=== PATIENT | female | born 1990 | race Caucasian/White ===

== ENCOUNTER 2017-04-03 19:09 | Emergency (ER) | payer MEDICAID, SELFPAY ==
[2017-04-03 19:10] VITALS: BP 154/94; PULSE 76; RESP 16; TEMP 36.2; O2SAT 100; BMI 32.3
--- NOTE | 2017-04-03 19:36 | ED.DCSUM_ITS ---
- ER Visit Summary Date of Service: 04/03/17 Chief Complaint: Concern for History of Present Illness: The patient is a 26 F presenting with concern for . Patient states that she took 2 home tests today, one was positive and one was negative. She states she has been told by doctors in the past that she is unable to get . She has a history of irregular periods. She states her last period was in November. She complains of mild nausea with no vomiting. She states last night she noted discharge from bilateral breasts. Denies other complaints. Physical Examination: Vitals are stable. Patient is afebrile. Alert no acute distress. HEENT exam is unremarkable. Neck is supple. Lungs are clear and equal bilaterally. Heart is regular rate and rhythm. Abdomen is soft nontender nondistended. Extremities are unremarkable. Skin is warm and dry. No focal neurologic deficit. Remainder of exam is unremarkable. Emergency Department Course and Treatment: Serum HCG is positive. [place] quant [address]. Ultrasound was obtained and shows live intrauterine with estimated gestational age by ultrasound 29 weeks and 6 days with estimated date of confinement of 06/13/2017. Patient's initial blood pressure was 154/94. She states she has a history of hypertension. She has been noncompliant and has not had medications over the past several years. Repeat blood pressure is 144/ 84. She states she is very anxious finding out that she is almost 30 weeks . Discuss[address] with Dr. Cinthia Loredo and patient will be seen in the office for close outpatient follow-up. Advised return ED if worsening complaints. Disposition: Discharge home Impression: 3rd trimester This note was generated with [employer] dictation software. It may contain incorrect words, spelling, and punctuation that were not noted in review of the chart prior to signing ED Disposition - Plan for ED Patient: Chief Complaint: Instructions: ED Care Referrals: Veronica Saldana MD [STAFF PHYSICIAN] - Care Physician,No Primary [Primary Care Provider] -
[2017-04-03 20:49] LABS: Pregnancy, Serum, hCG Quali. POSITIVE Negative (0-9 Nonpreg)
--- NOTE | 2017-04-03 20:50 | US_ITS ---
STUDY: SECOND AND THIRD TRIMESTER OBSTETRICAL ULTRASOUND - LIMITED REASON FOR EXAM: Female, 26 years old. Viability. Discovered in ER. LMP: 12/24/2017 PRIOR ULTRASOUND: None. TECHNIQUE: Transabdominal ultrasound evaluation was performed. FINDINGS: There is a single intrauterine fetus. The fetus is in a cephalic presentation. There is demonstrated cardiac activity with a heart rate of 165 bpm. There is a normal amniotic fluid volume. The largest amniotic fluid pocket measures 5.8 cm.. The placenta is anterior in location and is not low lying. There are Grade 1 placental changes. The cervix measures 3.1 cm in length. BIOMETRY: BPD: 7.0 cm: 28 weeks, 2 days HC: 27.8 cm: 30 weeks, 3 days AC: 26.6 cm: 30 weeks, 6 days FL: 5.6 cm: 29 weeks, 5 days Age by LMP: 14 weeks, 2 days. DANN by LMP: 09/30/2017. age by current US: 29 weeks, 6 days. DANN by current US: 06/13/2017. Estimated weight: 1520 grams, +/- 222 grams, 98 percentile. Gender: Indeterminant US/OB Limited With Biometrics IMPRESSION: Live intrauterine with estimated gestational age by ultrasound 29 weeks and 6 days with estimated date of confinement of 06/13/2017. This is not concordant with age by LMP likely secondary to patient unsure of exact date, clinically correlate. Electronically Signed: Diony Fitzgerald DO at 22:02 EST , Service support ,
--- NOTE | 2017-04-03 20:51 | ED.RN ---
DR MENSAH AWARE TEST IS POSITIVE.
[2017-04-03 21:48] LABS: hCG Titer Quant., Serum 13418 mIU/mL (<9 non-preg)
--- NOTE | 2017-04-03 22:10 | NURSING ---
CALLED DR. LEUNG
--- NOTE | 2017-04-03 22:14 | ED.DEP ---
ED Disposition - Plan for ED Patient: Chief Complaint: Instructions: ED Care Referrals: Care Physician,No Primary [Primary Care Provider] - Veronica Saldana MD [STAFF PHYSICIAN] -
[2017-04-03 22:21] VITALS: BP 140/92; PULSE 74; RESP 18; O2SAT 100
--- NOTE | 2017-04-03 22:23 | NURSING ---
DR. LEUNG CALLED BACK
[2017-04-03 22:34] VITALS: BP 140/92; PULSE 74; RESP 18; O2SAT 100
== END 2017-04-03 22:35 | disposition home or self-care (01) ==
PROVIDERS: Emergency Provider Emergency Medicine
DX: O10.913 Unspecified pre-existing hypertension complicating pregnancy, third trimester (principal); O09.33 Supervision of pregnancy with insufficient antenatal care, third trimester; O24.313 Unspecified pre-existing diabetes mellitus in pregnancy, third trimester; E11.9 Type 2 diabetes mellitus without complications; O99.333 Smoking (tobacco) complicating pregnancy, third trimester; Z91.14 Patient's other noncompliance with medication regimen; Z3A.29 29 weeks gestation of pregnancy
CPT/HCPCS: 76816; 84702; 84703; 99282

== ENCOUNTER → 2017-04-11 10:02 | Outpatient (CLI) | payer MEDICAID, SELFPAY ==
[2017-04-11 11:21] LABS: Color, Urine Yellow (Yellow); Glucose, Dipstick Normal (Normal); Ketone-Dipstick Negative (Negative); Leukocyte Esterase-Dipstick 25 /ul (Negative); Nitrite-Dipstick Negative (Negative); Occult Blood-Urine Negative /ul (Negative); Protein-Dipstick Negative (Negative); Specific Gravity, Urine 1.005 (1.002-1.030); Urine Bilirubin Dipstick Negative (Negative); Urine Clarity Clear (Clear); Urine Urobilinogen Normal (Normal)
[2017-04-11 11:26] LABS: Absolute Lymphocyte Count 1.61 X10^3/ul (0.83-4.51); Absolute Neutrophil Count 7.7 X10^3/uL (2.0-7.7); Basophil# 0.02 X10^3/uL; Basophil% 0.2 % (0-1); Eosinophil# 0.09 X10^3/uL; Eosinophils% 0.9 % (0-5); Hematocrit 34.6 % (37-47); Lymphocyte # 1.61 X10^3/ul (4.0); Lymphocyte % 15.8 % (19-41); Mean Corp Hgb Conc 34.7 g/gl (32-36); Mean Corpuscular Hgb 30.6 pg (27.0-32.0); Mean Corpuscular Volume 88.3 fL (81-99); Mean Platelet Vol. 12.1 fl (6.2-12.0); Monocyte# 0.72 X10^3/uL; Monocyte% 7.1 % (0-10); Neutrophil # 7.71 X10^3/uL (2.7-7.7); Neutrophil % 75.8 % (47-70); POSITIVE COUNT NO; POSITIVE DIFFERENTIAL NO; POSITIVE MORPHOLOGY NO; Platelet Count 148 K/mm3 (150-450); RBC Distribution Width CV 12.9 % (11.6-14.6); RBC Distribution Width SD 40.1 fl (35.1-43.9); Red Blood Count 3.92 M/mm3 (4.2-5.4); White Blood Count 10.2 K/mm3 (4.4-11.0)
[2017-04-11 11:45] LABS: Thyroid Stim Hormone (TSH) 1.47 uIU/mL (0.358-3.74)
[2017-04-11 12:06] LABS: Amphetamine Urine VISTA NEGATIVE (<1000 ng/mL); Barbiturate Urine VISTA NEGATIVE (< 200 ng/mL); Benzodiazepine Urine VISTA NEGATIVE (< 200 ng/mL); Cocaine Urine VISTA NEGATIVE (< 300 ng/mL); Ecstacy Urine VISTA NEGATIVE (< 500 ng/mL); Methadone Urine VISTA NEGATIVE (< 300 ng/mL); PCP Urine VISTA NEGATIVE (< 25 ng/mL); THC Urine VISTA NEGATIVE (< 50 ng/mL); Vista UDS pH Range 7
[2017-04-11 12:30] LABS: Hemoglobin A1c 4.9 % (4.2-6.3)
[2017-04-11 12:46] LABS: HIV - WCH Non-Reactive (Nonreactive); Rubella IgG 36.4 IU/mL
[2017-04-11 14:02] LABS: Chlamydia Trachomatis by PCR Negative (Negative); Neisserai gonorrhoeae by PCR Negative (Negative); Probe Check PASS; Sample Adequacy Control PASS; Specimen Processing Control PASS
[2017-04-12 15:57] LABS: HEPATITIS B SURFACE AG Negative (Negative); Hep C Antibodies <0.1 s/co ratio (0.0-0.9)
[2017-04-13 01:51] LABS: Prenatal RPR NONREACTIVE (NONREACTIVE)
[2017-04-16 15:49] LABS: HPV Reflexed? NOT INDICATED
== END ==
PROVIDERS: Visit Provider Obstetrics & Gynecology
DX: Z12.4 Encounter for screening for malignant neoplasm of cervix (principal); Z11.3 Encounter for screening for infections with a predominantly sexual mode of transmission; Z32.01 Encounter for pregnancy test, result positive
CPT/HCPCS: 36415; 80307; 81002; 83036; 84443; 85025; 86703; 86762; 86803; 87340; 87491; 87591; 88175; G0145

== ENCOUNTER → 2017-04-22 10:29 | Outpatient (CLI) | payer MEDICAID, SELFPAY ==
[2017-04-22 11:13] LABS: Glucose Challenge Gest 1H 50g 143 mg/dL (70-140)
== END ==
PROVIDERS: Visit Provider Obstetrics & Gynecology
DX: Z34.83 Encounter for supervision of other normal pregnancy, third trimester (principal); Z3A.00 Weeks of gestation of pregnancy not specified
CPT/HCPCS: 36415; 82950

== ENCOUNTER → 2017-05-05 08:50 | Outpatient (CLI) | payer MEDICAID, SELFPAY ==
[2017-05-05 09:42] LABS: Glucose GTT-Gestation. Fasting 75 mg/dL (<105)
[2017-05-05 11:00] LABS: Glucose GTT-Gestational 1 Hr 160 mg/dL (<190)
[2017-05-05 11:40] LABS: Glucose GTT-Gestational 2 Hr 154 mg/dL (<165)
[2017-05-05 13:00] LABS: Glucose GTT-Gestational 3 Hr 79 L (<145)
== END ==
PROVIDERS: Visit Provider Obstetrics & Gynecology
DX: O99.810 Abnormal glucose complicating pregnancy (principal); Z3A.00 Weeks of gestation of pregnancy not specified
CPT/HCPCS: 36415; 82951; 82952

== ENCOUNTER → 2017-05-20 11:05 | Outpatient (CLI) | payer MEDICAID, SELFPAY ==
[2017-05-20 14:48] LABS: Group B Strep DNA By PCR POSITIVE (Negative); Probe Check PASS
== END ==
PROVIDERS: Visit Provider Obstetrics & Gynecology
DX: Z36.85 Encounter for antenatal screening for Streptococcus B (principal)
CPT/HCPCS: 87653

== ENCOUNTER 2017-06-16 19:15 | Inpatient (IN) | payer MEDICAID, SELFPAY ==
[2017-06-16 18:45] VITALS: BMI 36.4
[2017-06-16 19:19] LABS: ROM Internal Control Test YES-OK TO RESULT pt. (Internal QC)
[2017-06-16 19:20] LABS: ROM Patient Test POSITIVE (Negative)
[2017-06-16] MEDS: Lactated Ringers 1,000 ML 50 ML IV ×3 (19:35→23:14)
[2017-06-16 19:51] LABS: Hematocrit 35.4 % (37-47); Hemoglobin 11.8 g/dl (12.0-15.0); Mean Corp Hgb Conc 33.3 g/gl (32-36); Mean Corpuscular Hgb 29.2 pg (27.0-32.0); Mean Corpuscular Volume 87.6 fL (81-99); Mean Platelet Vol. 12.7 fl (6.2-12.0); Platelet Count 118 K/mm3 (150-450); RBC Distribution Width CV 13.3 % (11.6-14.6); RBC Distribution Width SD 42.6 fl (35.1-43.9); Red Blood Count 4.04 M/mm3 (4.2-5.4); White Blood Count 13.5 K/mm3 (4.4-11.0)
[2017-06-16 20:06] LABS: Scan Indicated on CBC? Y/N NO
[2017-06-16] MEDS: fentaNYL-bupivacaine (epidural) 100 ML BAG EPIDURAL (22:00)
[2017-06-17] MEDS: fentaNYL-bupivacaine (epidural) 100 ML BAG EPIDURAL ×2 (02:41→07:38)
[2017-06-17] MEDS: 0.9% Saline Lock 10 ML Syringe IV ×2 (04:28→14:12)
[2017-06-17] MEDS: Lactated Ringers 1,000 ML 50 ML IV (06:42)
--- NOTE | 2017-06-17 08:27 | PCM.PN.OB ---
Subjective: Comfortable with epidural in place. Objective: Afeb VSS. FHR tracing Cat 1. - Physical Exam General: Alert, Oriented x3, Cooperative Abdomen: Non-Distended, Gravid, Appropriate for Gestational Age Extremities: No edema, No Calf Tenderness Skin: No rashes Neurological: Neuro grossly intact Psych/Mental Status: Normal Affect Comment: CE Rim 100% Weight: 212 lb 8.41 oz Body Mass Index (BMI) 36.4 Intake and Output for Last 24 Hours 06/15/17 06/16/17 06/17/17 23:59 23:59 23:59 Intake Total 3420 / 3420 Output Total 1675 / 1675 Balance 1745 / 1745 Laboratory Tests Past 24 Hrs 06/16/17 06/16/17 06/16/17 18:45 19:35 19:35 WBC 13.5 H RBC 4.04 L Hgb 11.8 L Hct 35.4 L MCV 87.6 MCH 29.2 MCHC 33.3 RDW 13.3 RDW Differential 42.6 Plt Count 118 L MPV 12.7 H Vag Amniotic Fld Detect POSITIVE H Urine Opiates Screen Urine Methadone Screen Ur Barbiturates Screen Ur Phencyclidine Scrn Ur Amphetamines Screen U Methamphetamin-MDMA U Benzodiazepines Scrn Urine Cocaine Screen U Cannabinoids Screen Ur Drug Screen Comment Blood Type O POSITIVE Antibody Screen NEGATIVE 06/17/17 05:40 WBC RBC Hgb Hct MCV MCH MCHC RDW RDW Differential Plt Count MPV Vag Amniotic Fld Detect Urine Opiates Screen Pending Urine Methadone Screen Pending Ur Barbiturates Screen Pending Ur Phencyclidine Scrn Pending Ur Amphetamines Screen Pending U Methamphetamin-MDMA Pending U Benzodiazepines Scrn Pending Urine Cocaine Screen Pending U Cannabinoids Screen Pending Ur Drug Screen Comment Blood Type Antibody Screen Medical Necessity - Tobacco Use Smoking Status: Current every day smoker Assessment/Plan Progressing well in labor. Anticipate pushing soon.
[2017-06-17] MEDS: Oxytocin 30 units/NS 500 ml 30 UNITS/500 ML IV.SOLN 334 UNITS IV (10:37)
--- NOTE | 2017-06-17 10:47 | PCM.OB.VAG ---
Vaginal Delivery Maternal Presentation: Active Labor, Spontaneous Rupture of Membranes Presents at 40w4d ega with SROM at 1100 on 06/16. Progressed overnight to FD then pushed for about 2 hours to deliver a live female . Apgars 8/9. There was a tight nuchal cord. After delivery delayed cord clamping was employed. The was an active cry within one minute of delivery. Cord bloods were collected. The placenta delivered spontaneously intact with a centrally located 3VC. The uterus contracted well. Inspection revealed an intact cervix, upper vagina, and perineum. Amniotic Membrane Rupture Type: Spontaneous at home Rupture of Membrane time: 1100 Amniotic Fluid Description: Clear Final DANN: 06/13/17 Final DANN Source: US <20 weeks Gestational age: 40 Weeks and 4 Days Date of Procedure: 06/17/17 Pre-Operative Diagnosis: labor Post-Operative Diagnosis: same Surgery/ Procedure Performed: Spontaneous Vaginal Delivery Anesthesiologist: Toan Schreiber Type of Anesthesia: Epidural Description of Procedure: see above Presentation: Vertex Placental Delivery Description: Spontaneous Placenta Disposition: [facility] Percentage of Placenta Abruption: 0 Cord Vessel Description: 3 Vessels Nuchal Cord Compression: With compression Cord Entanglement: Around neck x 1, tight Drain: Reyes to straight drain Estimated Blood Loss: 300cc A gender: Female (1 minute): 8 (5 minute): 9 Episiotomy Description: None Laceration: None Medications given after delivery: IV Pitocin Complications: None
--- NOTE | 2017-06-17 10:52 | OP.PCM_ITS ---
Vaginal Delivery Maternal Presentation: Active Labor, Spontaneous Rupture of Membranes Presents at 40w4d ega with SROM at 1100 on 06/16. Progressed overnight to FD then pushed for about 2 hours to deliver a live female . Apgars 8/9. There was a tight nuchal cord. After delivery delayed cord clamping was employed. The was an active cry within one minute of delivery. Cord bloods were collected. The placenta delivered spontaneously intact with a centrally located 3VC. The uterus contracted well. Inspection revealed an intact cervix , upper vagina, and perineum. Amniotic Membrane Rupture Type: Spontaneous at home Rupture of Membrane time: 1100 Amniotic Fluid Description: Clear Final DANN: 06/13/17 Final DANN Source: US <20 weeks Gestational age: 40 Weeks and 4 Days Date of Procedure: 06/17/17 Pre-Operative Diagnosis: labor Post-Operative Diagnosis: same Surgery/ Procedure Performed: Spontaneous Vaginal Delivery Anesthesiologist: Toan Schreiber Type of Anesthesia: Epidural Description of Procedure: see above Presentation: Vertex Placental Delivery Description: Spontaneous Placenta Disposition: [facility] Percentage of Placenta Abruption: 0 Cord Vessel Description: 3 Vessels Nuchal Cord Compression: With compression Cord Entanglement: Around neck x 1, tight Drain: Reyes to straight drain Estimated Blood Loss: 300cc Infant A gender: Female (1 minute): 8 (5 minute): 9 Episiotomy Description: None Laceration: None Medications given after delivery: IV Pitocin Complications: None
[2017-06-17] MEDS: Oxytocin 30 units/NS 500 ml 30 UNITS/500 ML IV.SOLN 167 UNITS IV (11:12)
[2017-06-17 11:44] LABS: Amphetamine Urine VISTA NEGATIVE (<1000 ng/mL); Barbiturate Urine VISTA NEGATIVE (< 200 ng/mL); Benzodiazepine Urine VISTA NEGATIVE (< 200 ng/mL); Cocaine Urine VISTA NEGATIVE (< 300 ng/mL); Ecstacy Urine VISTA NEGATIVE (< 500 ng/mL); Methadone Urine VISTA NEGATIVE (< 300 ng/mL); PCP Urine VISTA NEGATIVE (< 25 ng/mL); THC Urine VISTA NEGATIVE (< 50 ng/mL); Vista UDS pH Range 6
[2017-06-17] MEDS: Acetaminophen 500 MG Tablet 1000 MG PO (14:11)
[2017-06-17 16:00] VITALS: BP 119/60; PULSE 68; RESP 16; TEMP 36.9
[2017-06-17 20:10] VITALS: BP 145/92; BP 149/94; PULSE 74; RESP 16; TEMP 36.7; O2SAT 98
[2017-06-17 23:39] VITALS: BP 147/78; PULSE 78; RESP 16; TEMP 36.6; O2SAT 97
[2017-06-18 04:50] VITALS: BP 133/76; PULSE 75; RESP 16; TEMP 36.7; O2SAT 97
[2017-06-18 04:56] LABS: Hematocrit 30.2 % (37-47); Hemoglobin 10.2 g/dl (12.0-15.0); Mean Corp Hgb Conc 33.8 g/gl (32-36); Mean Corpuscular Hgb 30.3 pg (27.0-32.0); Mean Corpuscular Volume 89.6 fL (81-99); Mean Platelet Vol. 12.5 fl (6.2-12.0); Platelet Count 95 K/mm3 (150-450); RBC Distribution Width CV 13.3 % (11.6-14.6); RBC Distribution Width SD 41.3 fl (35.1-43.9); Red Blood Count 3.37 M/mm3 (4.2-5.4); White Blood Count 11.2 K/mm3 (4.4-11.0)
[2017-06-18 04:58] LABS: Scan Indicated on CBC? Y/N NO
[2017-06-18] MEDS: Ibuprofen 600 MG Tablet PO ×3 (04:58→20:59)
--- NOTE | 2017-06-18 07:40 | PCM.PN.OB ---
Subjective: No specific complaints. Breast feeding. Bleeding light Objective: Afeb VSS Hgb stable - Physical Exam General: Alert, Oriented x3, Cooperative, No apparent distress Lungs: Clear to auscultation, Normal air movement Cardiovascular: Regular rate, Regular Rhythm Abdomen: Soft, Non Tender, Non-Distended, - - Fundus firm nontender Extremities: No edema Skin: No rashes Neurological: Neuro grossly intact Psych/Mental Status: Normal Affect Comment: Lochia appropriate PP day#1. Vital Signs Temp Pulse Resp BP Pulse Ox 98.0 F 75 16 133/76 H 97 06/18/17 04:50 06/18/17 04:50 06/18/17 04:50 06/18/17 04:50 06/18/17 04:50 Oxygen Delivery Method Room Air Weight: 212 lb 8.41 oz Body Mass Index (BMI) 36.4 Intake and Output for Last 24 Hours 06/16/17 06/17/17 06/18/17 23:59 23:59 23:59 Intake Total 3420 / 3420 Output Total 3825 / 3825 Balance -405 / -405 Laboratory Tests Past 24 Hrs 06/17/17 06/18/17 05:40 04:50 WBC 11.2 H RBC 3.37 L Hgb 10.2 L Hct 30.2 L MCV 89.6 MCH 30.3 MCHC 33.8 RDW 13.3 RDW Differential 41.3 Plt Count 95 L MPV 12.5 H Urine Opiates Screen NEGATIVE Urine Methadone Screen NEGATIVE Ur Barbiturates Screen NEGATIVE Ur Phencyclidine Scrn NEGATIVE Ur Amphetamines Screen NEGATIVE U Methamphetamin-MDMA NEGATIVE U Benzodiazepines Scrn NEGATIVE Urine Cocaine Screen NEGATIVE U Cannabinoids Screen NEGATIVE Medical Necessity - Tobacco Use Smoking Status: Current every day smoker Assessment/Plan Doing well on PP day#1. Continue routine care.
[2017-06-18 07:50] VITALS: BP 130/88; PULSE 67; RESP 20; TEMP 36.6; O2SAT 98
--- NOTE | 2017-06-18 11:28 | DCINST_ITS ---
Discharge Diet: No Restrictions Discharge Activity: Return to Normal Activity, No Restrictions, May Drive, May Shower Return to work on:: 08/18/17 May shower in (days): 0 May resume sexual activity in: 4-6 weeks Call your doctor if your incision/area has: Sudden Increased Bleeding, Increased Pain/ Swelling, Foul Smelling Discharge Call your doctor if you observe: Fever of 101 or Higher, Inability to urinate, Inability to have a bowel movement, Using more than one pad per hour, Shortness of breath, Chest pain, Calf discomfort, Uncontrolled pain Cleanse incision/area with: Soap & Water Additional Instructions: If you experience any of the following, contact your healthcare provider. * Bleeding that soaks a pad every hour for 2 hours * Fever 100.4 or higher * Unrelieved incision or abdominal pain * Swelling, redness, discharge or bleeding from your incision or episiotomy site * Your incision begins to separate * Problems urinating (including inability to urinate or burning while urinating) . * Visual changes * Severe headache * Flu-like symptoms * Pain or redness in one of both of your breasts * Pain, warmth, tenderness or swelling in your legs, especially the calf area * Frequent nausea and vomiting * Symptoms of depression or anxiety If you experience any of the following, call 911 or go to the nearest Emergency Room. * Chest pain * Problems breathing * Seizure activity * Partial or complete paralysis of a body part, slurred speech, weakness or drooping of the face, or a sudden inability to walk or hold your balance Allergies/Adverse Reactions: Allergies No Known Allergies Allergy (Verified 04/03/17 19:13) Medications to take at Discharge Vits [Prenatabs FA ] 1 tablet PO DAILY 06/16/17 Ibuprofen [Motrin] 800 mg PO TID PRN PRN #30 tab 06/18/17 The following prescriptions were given: Ibuprofen [Motrin] 800 mg PO TID PRN PRN #30 tab PRN Reason: Pain or cramping Please Follow Up With: Presley Ramirez MD When: 6 weeks Primary Care Physician: Care Physician,No Primary [Primary Care Provider] - Proposed Discharge Date: 06/19/17
[2017-06-18 13:25] VITALS: BP 102/57; PULSE 66; RESP 18; TEMP 36.7; O2SAT 98
[2017-06-18] MEDS: Prenatal Vits Tablet 1 TABLET PO (13:40)
--- NOTE | 2017-06-18 15:22 | CASEMGMT ---
Social Work: Referral Date: 06/18/17 Assessment Date:06/18/17 Reason for consult: later care. Informant: ENRIQUETA Carpenter Met with MOB and FOB in room. Introduced self and the role of the social staff worker. MOB and FOB have been in an 8 year relationship and currently live together. MOB and FOB are originally from [place] and will be moving back there as this is where most of their family and support system reside. MOB states that MOB's mother and step father are very supportive and will assist as needed. MOB is currently unemployed and will be primary caregiver of baby as FOB works. FOB is self employed and is flexible with work schedule. This baby is the first child for both MOB and FOB. EULALIA admits to late care as she did not realize until week 29 that she was . MOB states my periods have always been irregular so I did not realize I had skipped period plus I felt fine. MOB also states I was told I could not have children. MOB states once the was verified that care was followed up on. MOB verifies that all needed baby care items including crib and care seat have been obtained. EULALIA has already enrolled in [employer] and currently has food stamps through [employer]. MOB is on [employer] as will be the baby. MOB will be taking baby to a technical sales advisor in [place] and appointment will be made by MOB today per MOB. MOB denies any history of mental health concerns or substance abuse, although MOB is a daily smoker. FOB asked to step out of room as this SW assessed for safety concerns in the home. FOB was agreeable and pleasant in responding. After FOB stepped out of room this SW assessed MOB safety. MOB denied history or concern of abuse to MOB or baby. MOB and FOB appear to bonding well with baby. Information on safe sleeping and tips to soothe a crying baby given to MOB. Discussed signs of post depression and discussed the importance of recognizing different emotions. Information on depression provided to MOB. MOB encouraged to ask for SW if any needs or questions arise. No other needs identified at this time. See complete social assessment. PLAN: MOB to return home with baby and FOB at D/C today. ROSALIA Torres
[2017-06-18 20:48] VITALS: BP 136/80; PULSE 68; RESP 18; TEMP 36.6
[2017-06-19 01:20] VITALS: BP 139/83; PULSE 62; RESP 18; TEMP 36.4
--- NOTE | 2017-06-19 07:23 | PCM.PN.OB ---
Subjective: Doing well. No specific complaints. Bleeding light. Objective: Afeb VSS - Physical Exam General: Alert, Oriented x3, Cooperative, No apparent distress Lungs: Clear to auscultation, Normal air movement Cardiovascular: Regular rate, Regular Rhythm Abdomen: Soft, Non Tender, Non-Distended, - - Fundus nontender Extremities: No edema Skin: No rashes Neurological: Neuro grossly intact Psych/Mental Status: Normal Affect Comment: Lochia light Vital Signs Temp Pulse Resp BP Pulse Ox 97.5 F L 62 18 139/83 H 98 06/19/17 01:20 06/19/17 01:20 06/19/17 01:20 06/19/17 01:20 06/18/17 13:25 Oxygen Delivery Method Room Air Weight: 212 lb 8.41 oz Body Mass Index (BMI) 36.4 Intake and Output for Last 24 Hours 06/17/17 06/18/17 06/19/17 23:59 23:59 23:59 Intake Total 3420 / 3420 Output Total 3825 / 3825 Balance -405 / -405 Medical Necessity - Tobacco Use Smoking Status: Current every day smoker Assessment/Plan Doing well on PP day#2. Cleared for discharge home today. Home going instructions and warnings given.
--- NOTE | 2017-06-19 07:26 | PCM.DC.SUM ---
Discharge Date and Diagnosis Date of Admission: 06/16/17 Date of Discharge: 06/19/17 - Primary Discharge Diagnosis S/P Hospital Course and Treatment Consultations 06/16/17 19:18 Consult: Anesthesia Routine Comment: Reason For Exam: LABOR Operations: None Procedures: - - Epidural, Summary of Care Provided: The patient is a 27 year old F [admitted at term with SROM progressed over 22 hours to fully dilated then pushed for 2 hours to deliver a live female without complication. Post course unremarkable. Discharged home on PP day#2.] Discharge Diet: No Restrictions Discharge Activity: Return to Normal Activity, No Restrictions, May Drive, May Shower Return to work on:: 08/18/17 May shower in (days): 0 May resume sexual activity in: 4-6 weeks Call your doctor if your incision/area has: Sudden Increased Bleeding, Increased Pain/ Swelling, Foul Smelling Discharge Call your doctor if you observe: Fever of 101 or Higher, Inability to urinate, Inability to have a bowel movement, Using more than one pad per hour, Shortness of breath, Chest pain, Calf discomfort, Uncontrolled pain Cleanse incision/area with: Soap & Water Home Medications: Medications to take at Discharge Vits [Prenatabs FA ] 1 tablet PO DAILY 06/16/17 Ibuprofen [Motrin] 800 mg PO TID PRN PRN #30 tab 06/18/17 Following Prescrptions Were Given to Patient: Ibuprofen [Motrin] 800 mg PO TID PRN PRN #30 tab PRN Reason: Pain or cramping Primary Care Physician: Care Physician,No Primary [Primary Care Provider] - Please Follow Up With: Presley Ramirez MD When: 6 weeks Disposition: Home Minutes spent on discharge:: 15 Patient Condition:: Good Medical Necessity - Tobacco Use Smoking Status: Current every day smoker Meaningful Use Info Meaningful Use Diagnoses (Choose all that apply): None applicable
[2017-06-19 08:45] VITALS: BP 139/93; BP 140/94; PULSE 79; RESP 20; TEMP 36.9; O2SAT 100
[2017-06-19 09:20] VITALS: BP 134/84
== END 2017-06-19 11:15 | disposition home or self-care (01) | DRG 373 ==
LOC: WP 06-17 00:58 → WPOUT 06-18 07:44
PROVIDERS: Admitting Provider Obstetrics & Gynecology; Visit Provider Obstetrics & Gynecology
DX: O99.824 Streptococcus B carrier state complicating childbirth (principal); O69.1XX0 Labor and delivery complicated by cord around neck, with compression, not applicable or unspecified; O99.334 Smoking (tobacco) complicating childbirth; Z3A.40 40 weeks gestation of pregnancy; Z37.0 Single live birth
CPT/HCPCS: 59025; 59050; 80307; 84112; 85027; 86850; 86900; 99218; J7120; A4216; G0378

== ENCOUNTER 2022-11-18 12:42 | Emergency (ER) | payer MEDICAID, SELFPAY ==
[2022-11-18 12:43] VITALS: BP 157/110; PULSE 99; RESP 16; TEMP 36.7; O2SAT 98
[2022-11-18 13:42] VITALS: BMI 33.1
--- NOTE | 2022-11-18 13:50 | CT_ITS ---
STUDY: CT SOFT TISSUE NECK WITH CONTRAST REASON FOR EXAM: Female, 32 years old. Difficulty swallowing. 4 week history of cough and sore throat. RADIATION DOSAGE (If Supplied By Facility): CTDIvol = ( 18.30 ) mGy, DLP = ( 548.36 ) mGycm TECHNIQUE: The patient was scanned in a multi-detector CT scanner. High resolution transaxial imaging was performed following intravenous administration of IV 100mL Isovue-370. Sagittal and coronal images were reconstructed. Individualized dose optimization techniques were used for this CT. COMPARISON: None. FINDINGS: Normal bilateral parotid glands. Normal bilateral life insurance sales agent spaces. Normal bilateral parapharyngeal spaces. Normal bilateral carotid spaces. Normal bilateral sublingual and submandibular glands and spaces. Normal visualized nasopharynx. Normal retropharyngeal space. Normal perivertebral space. Normal visualized bilateral faucial tonsils. The visualized tongue, tongue base and oropharynx are normal. There are minimally enlarged lymph nodes of the neck, with preservation of normal vern architecture, consistent with a reactive lymph hyperplasia. There is no demonstrated solid or cystic mass lesion. There is no abnormal contrast enhancement. Normal epiglottis, bilateral vallecula and hypopharynx. The pre-epiglottic and paraglottic adipose spaces are normal. Normal visualized bilateral piriform sinuses, aryepiglottic folds, vocal cords, and arytenoid-cricoid articulations. Normal subglottic trachea. There is a 5.8 mm hypodensity in the inferior aspect of the left lobe of the thyroid suggestive of a small thyroid cyst. Normal visualized pulmonary apices. Normal visualized paranasal sinuses. Normal visualized cervical spine. CT/Soft Tissue Neck WITH Contrast IMPRESSION: Normal enhanced CT examination of the soft tissues of the neck. Electronically Signed: Talat Manzano MD at 15:26 EDT ,
--- NOTE | 2022-11-18 13:50 | CT_ITS ---
STUDY: CTA CHEST REASON FOR EXAM: Female, 32 years old. 4 week history of cough and sore throat. Left-sided chest pain. RADIATION DOSAGE (If Supplied By Facility): CTDIvol = ( 16.54 ) mGy, DLP = ( 688.11 ) mGycm TECHNIQUE: The examination was performed with the intravenous administration of IV 100mL Isovue-370. Post-processing of the angiographic images was performed, with multiplanar reformation and 3D reconstruction. Individualized dose optimization techniques were used for this CT. COMPARISON: None. FINDINGS: Normal enhancement of the main pulmonary artery and right and left pulmonary arteries. Normal enhancement of the bilateral peripheral pulmonary arteries. There is no demonstrated pulmonary embolism. Normal thoracic aorta and visualized great vessels. There is no demonstrated aortic dissection. Normal heart and pericardium. Normal mediastinum. Normal hilar regions. Normal visualized trachea and bronchi. The lungs are well expanded. Normal pulmonary parenchyma. Normal pleura. Normal chest wall structures. Normal osseous structures. Normal visualized upper abdomen. CT/CTA Chest W/WO Contrast IMPRESSION: Normal CTA chest examination, without a demonstrated pulmonary embolism or arterial dissection. Electronically Signed: Talat Manzano MD at 15:24 EDT ,
[2022-11-18 13:58] VITALS: O2SAT 99
--- NOTE | 2022-11-18 13:58 | EX.ED.DYSGE1 ---
HPI History of Present Illness Chief Complaint: Sore Throat Informant: patient Narrative Narrative: Primary reason for coming in is difficulty swallowing. Patient states that about a month ago she started with a sore throat. She was coughing. It has improved but she still has a dry cough. No productivity. No blood. When she coughs she has soreness in the left anterior chest. That is been going on about a week and a half. She states she gets into coughing fits that will go on 20 minutes. After that she is not able to swallow. Other times she is able to swallow a little bit but it is hard to get food and liquids down. She states it feels like it goes part way and then it just spasms and will stop but its not consistent. She thinks she has lost weight though. She has not seen any redness or exudate in her throat. No history of thrush. Of note, patient moved up here recently but she just moved from about an hour away in [place]. No travel surgery immobilization personal or family history of DVT or PE. She also was on Lantus and losartan but has not had those for about 6 weeks or more. [facility] Medical History Hypertension Type 2 diabetes mellitus Home Medications vits,calcium no.78-iron fumarate-folic acid 29 mg-1 mg tablet (Prenatabs FA) 1 tab PO DAILY 06/16/17 [History Last Taken Unknown] ibuprofen 800 mg tablet 800 mg PO TID PRN PRN Pain or cramping #30 tabs 06/18/17 [Rx Last Taken Unknown] Allergy/AdvReac Type Severity Reaction Status Date / Time No Known Allergies Allergy Verified 11/18/22 12:45 Social History Smoking Status: Current every day smoker tobacco type: cigarettes ROS ROS ED ROS Narrative A complete review of systems was performed and is negative except as documented in the history of present illness. Some specific details below. Constitutional: No recent fevers or chills. She thinks she may have had some fevers when this all started a month ago though. EYE: No discharge, visual complaints, or pain. ENT: History of present illness. CV: Mild left lower chest discomfort primarily with coughing. Respiratory: Cough but not short of breath. Sputum production. No wheezing. GI: No abdominal pain. No nausea vomiting diarrhea. No blood in stool. : No frequency dysuria or hematuria. Musculoskeletal: No recent trauma. No pains. No swelling. Skin: No rash. Nondiaphoretic. Neuro: No weakness or numbness. Endocrine: No polyuria or polydipsia. EXAM Physical Exam Narrative Exam Narrative: CONSTITUTIONAL: Patient is nontoxic in appearance. The patient looks comfortable. Work of breathing looks normal. HEENT: No notable trauma. Mucous membranes moist. No sinus tenderness. No indication of pain with swallowing. Not see any thrush. Overall her throat exam looks quite normal. She handles her secretions well. There is no dental tenderness. Her voice is occasionally raspy but clears up as we talk. She had just had some coughing ahead of time. EYES: No conjunctival injection. No proptosis. NECK:No JVD. No stridor heard over the anterior neck. CARDIOVASCULAR: Regular rate. Regular rhythm. No notable murmur. No JVD. RESPIRATORY: No respiratory distress. Breathing is unlabored. No wheezes. No rhonchi. No rales. Does have some lower left anterior chest wall tenderness. But no subcu air. No vesicles. GASTROINTESTINAL: Not distended. Bowel sounds are normal. No tenderness. No guarding. No rebound. No palpable mass. No bruit is heard. GENITOURINARY: No tenderness over the bladder. No CVA tenderness. MUSCULOSKELETAL: Atraumatic. No peripheral edema. No cord. No tenderness along the deep venous system. No asymmetry. No distended veins. NEUROLOGICAL: Patient is alert and appropriate. No focal deficit noted. SKIN: No noted rashes. No diaphoresis. PSYCHIATRIC: Patient is calm. Mood is appropriate. Const Vital Signs: 11/18/22 12:43 11/18/22 13:58 11/18/22 14:18 Temperature 98.0 F Temperature Source Temporal Pulse Rate 99 71 Respiratory Rate 16 18 Respiratory Effort Short of Breath Labored Respiratory Depth Shallow Respiratory Pattern Tachypnea Blood Pressure 157/110 H 125/79 H Blood Pressure Mean 125 94 Pulse Ox 98 99 Oxygen Delivery Method Room Air Room Air Room Air 11/18/22 15:36 Temperature Temperature Source Pulse Rate 66 Respiratory Rate 18 Respiratory Effort Respiratory Depth Respiratory Pattern Blood Pressure 119/72 Blood Pressure Mean 87 Pulse Ox 97 Oxygen Delivery Method Room Air MDM MDM MDM Narrative Medical decision making narrative: My independent interpretation of the patient's CT of the neck with contrast shows no mass. No tracheal deviation. Final reading is negative. My independent interpretation of the patient's CTA of the chest shows no sign of pulmonary embolus or mass. Even on lung windows I see no inflammatory changes. Final reading is also negative. CBC showed just a mild nonspecific elevation of the white count otherwise normal. Patient's electrolytes are normal other than glucose mildly up at 189. Patient's liver function test are normal. Patient's blood pressure is 119/72. I do not think we need to start her on her blood pressure meds at this time. Also, her glucose was only 189 off of her meds for 6 weeks. I do not think restarting Lantus would be safe at this time. We will have her follow-up with primary for. I will repeat for her to a physician but she is to pick anyone that she likes also. She is not currently seeing anyone. I would prefer not to give a burst of steroids because this will likely worsen her glucose. She has had about a month or so of intermittent coughing and sore throat. This is likely a bronchitis type episode. He is encouraged to quit smoking. The symptoms should resolve over the next couple weeks. We discussed reasons to return. Lab Data Labs: Laboratory Results - last 24 hr 11/18/22 11/18/22 13:57 14:08 WBC 12.5 H RBC 5.13 Hgb 14.6 Hct 44.2 MCV 86.2 MCH 28.5 MCHC 33.0 RDW Std Deviation 39.1 RDW Coeff of Maryana 12.5 Plt Count 249 MPV 11.6 Immature Gran % (Auto) 0.200 Neut % (Auto) 71.5 H Lymph % (Auto) 20.6 Major % (Auto) 6.8 Eos % (Auto) 0.6 Baso % (Auto) 0.3 Absolute Neuts (auto) 9.0 H Absolute Lymphs (auto) 2.58 Nucleated RBC % 0 Sodium 137 Potassium 3.9 Chloride 103 Carbon Dioxide 26.0 Anion Gap 8 BUN 23 H Creatinine 1.02 Estim Creat Clear Calc 70.59 Est GFR (MDRD) Af Amer 80 Est GFR (MDRD) Non-Af 66 BUN/Creatinine Ratio 22.5 H Glucose 189 H Calcium 9.6 Total Bilirubin 0.60 AST 19 ALT 28 Alkaline Phosphatase 72 Total Protein 7.9 Albumin 3.9 Globulin 4.0 Albumin/Globulin Ratio 1.0 POC Glucose 204 H Radiography Diagnostic Testing: Clinical Impression(s) from Imaging Studies Chest CTA 11/18/22 13:50 IMPRESSION: Normal CTA chest examination, without a demonstrated pulmonary embolism or arterial dissection. Electronically Signed: Talat Manzano MD at 15:24 EDT , Soft Tissue Neck CT 11/18/22 13:50 IMPRESSION: Normal enhanced CT examination of the soft tissues of the neck. Electronically Signed: Talat Manzano MD at 15:26 EDT , Discharge Plan Triage Chief Complaint: Sore Throat ED Provider: Addison Duran Dx/Rx/DC Orders Clinical Impression: History of hypertension, History of diabetes mellitus, Bronchitis Instructions: ED Bronchitis, No Antibiotic (Adult) Prescriptions: No Action Prenatabs FA 1 TABLET tablet 1 tab PO DAILY Hold Instructions: Pt has been DC'd ibuprofen 800 MG tablet 800 mg PO TID PRN PRN (Reason: Pain or cramping) Qty: 30 1RF Hold Instructions: Pt has been DC'd Primary Care Provider: Care Physician,No Primary Referrals: Edda Cardenas DO [Med Staff - Active Staff] - As soon as possible Care Physician,No Primary [Primary Care Provider] - Disposition Disposition: Home, Self Care
[2022-11-18] MEDS: 0.9% Normal Saline (1000mL) 1,000 ML 1000 ML IV (14:10)
[2022-11-18 14:14] LABS: Absolute Lymphocyte Count 2.58 X10^3/uL (0.83-4.51); Basophil# 0.04 X10^3/uL; Basophil% 0.3 % (0-1); Eosinophil# 0.08 X10^3/uL; Eosinophils% 0.6 % (0-5); Hematocrit 44.2 % (37-47); Hemoglobin 14.6 g/dL (12.0-15.0); Lymphocyte # 2.58 X10^3/ul (0.83-4.51); Lymphocyte % 20.6 % (19-41); Mean Corpuscular Hgb 28.5 pg (27.0-32.0); Mean Corpuscular Volume 86.2 fL (81-99); Mean Platelet Vol. 11.6 fl (6.2-12.0); Monocyte# 0.85 X10^3/uL; Monocyte% 6.8 % (0-10); NRBC Flagged by Analyzer 0 % (0-5); Neutrophil # 8.95 X10^3/uL (2.7-7.7); Neutrophil % 71.5 % (47-70); Platelet Count 249 K/mm3 (150-450); RBC Distribution Width CV 12.5 % (11.6-14.6); RBC Distribution Width SD 39.1 fl (35.1-43.9); Red Blood Count 5.13 M/mm3 (4.2-5.4); White Blood Count 12.5 K/mm3 (4.4-11.0)
[2022-11-18 14:18] VITALS: BP 125/79; PULSE 71; RESP 18; O2SAT 99
[2022-11-18 14:21] LABS: Bedside Glucose 204 mg/dL (74-106)
[2022-11-18 14:29] LABS: AST(SGOT) 19 U/L (15-37); Alanine Aminotransfer ALT/SGPT 28 U/L (13-56); Albumin, Serum 3.9 g/dL (3.2-5.0); Alkaline Phosphatase 72 U/L (45-117); Anion Gap 8 (5-15); BUN 23 mg/dL (7-18); BUN/Creat Ratio 22.5 RATIO (10-20); Calcium,Total 9.6 mg/dL (8.5-10.1); Chloride 103 mmol/L (98-107); Creatinine, Serum 1.02 mg/dL (0.55-1.02); EST Glomerular Filtration Rate 66 mL/min (>60); Est Glom Filt Rate - Afr Amer 80 mL/min (>60); Estimated Creatinine Clearance 70.59 ml/min; Glucose 189 mg/dL (74-106); Potassium 3.9 mmol/L (3.5-5.1); Protein, Total 7.9 g/dL (6.4-8.2); Sodium Level 137 mmol/L (136-145)
[2022-11-18 15:36] VITALS: BP 119/72; PULSE 66; RESP 18; O2SAT 97
[2022-11-18 15:50] VITALS: BP 143/90; PULSE 83; RESP 18; O2SAT 99
== END 2022-11-18 15:56 | disposition home or self-care (01) ==
PROVIDERS: Emergency Provider Emergency Medicine; Visit Provider Emergency Medicine
DX: J02.9 Acute pharyngitis, unspecified (principal); F17.210 Nicotine dependence, cigarettes, uncomplicated
CPT/HCPCS: 70491; 71275; 80053; 82962; 85025; 96360; 96361; 99284; J7030; Q9967; A4216

== ENCOUNTER 2022-12-28 11:06 | Emergency (ER) | payer MEDICAID, SELFPAY ==
[2022-12-28 11:07] VITALS: BP 139/100; PULSE 86; RESP 18; TEMP 35.8; O2SAT 98; BMI 32.9
--- NOTE | 2022-12-28 11:30 | CT_ITS ---
STUDY: CT ABDOMEN AND PELVIS WITH CONTRAST REASON FOR EXAM: Female, 32 years old. Abd pain -- IV PO Contrast RADIATION DOSAGE (If Supplied By Facility): CTDIvol = ( 16.05 ) mGy, DLP = ( 1288.06 ) mGycm TECHNIQUE: Oral and amp; IV Gastrografin and amp; 100mL Isovue-370 was administered. Transaxial images were obtained from the dome of the diaphragm to the symphysis pubis in the arterial, nephrographic and excretory phases. Multiplanar coronal and sagittal images were reformatted. Individualized Dose Optimization Techniques Were Used For This CT. COMPARISON: No relevant prior comparison study available FINDINGS: The visualized lung bases are unremarkable. The visualized portions of the heart are within normal limits. Mild hepatic steatosis. Borderline hepatomegaly. Normal gallbladder and extrahepatic biliary system. Normal spleen. Normal pancreas. Normal bilateral adrenal glands. Normal visualized stomach. Normal in caliber small bowel loops. Fecal retention. No evidence of acute diverticulitis. The appendix is visualized and appears normal. Normal abdominal aorta. No retroperitoneal adenopathy. Normal right kidney. Normal left kidney. Normal urinary bladder. Heterogeneous uterus better evaluated by ultrasound. 2 cm right adnexal cyst/prominent follicle. No free fluid. Very small umbilical hernia containing fat. Normal osseous structures. CT/Abdomen/Pelvis WITH Contrast IMPRESSION: 1. No focal acute inflammatory process. 2. Heterogeneous uterus better evaluated by ultrasound. Electronically Signed: Jeff Cox MD at 14:51 EDT ,
--- NOTE | 2022-12-28 11:31 | EX.ED.DYSGE1 ---
HPI History of Present Illness Chief Complaint: Abd Pain Informant: patient Onset/Context/Timing Onset: - (4 years) Narrative Narrative: Patient presents with lower abdominal pain has been ongoing for years since the of her last son. She states about a year and a half ago her [employer] where she lived previously did a scope that did not reveal any evidence of endometriosis. She moved here 5 months ago but has not established care with any local physicians. She states her pain was worse today to the point where she was having trouble walking at work so she came in. She is she will take ibuprofen with some improvement in her symptoms. She reports irregular menstrual cycles since she was young, often having 2 or 3 menstrual cycles a month. She denies urinary symptoms currently, but states she did have UTI symptoms about a week ago that spontaneously resolved. [facility] Medical History Hypertension Type 2 diabetes mellitus Home Medications vits,calcium no.78-iron fumarate-folic acid 29 mg-1 mg tablet (Prenatabs FA) 1 tab PO DAILY 06/16/17 [History Last Taken Unknown] ibuprofen 800 mg tablet 800 mg PO TID PRN PRN Pain or cramping #30 tabs 06/18/17 [Rx Last Taken Unknown] oxycodone-acetaminophen 5 mg-325 mg tablet (Percocet) 1 tab PO Q6H PRN pain 3 days #14 tabs 12/28/22 [Rx Last Taken Unknown] Allergy/AdvReac Type Severity Reaction Status Date / Time No Known Allergies Allergy Verified 12/28/22 11:07 Social History Smoking Status: Current every day smoker tobacco type: cigarettes ROS ROS ED Constitutional Constitutional ED: Denies chills or fever(s) Eyes Eyes: Denies discharge from eye(s) ENT ENT ED: Denies discharge from eye(s), rhinorrhea or sore throat Cardiovascular Cardiovascular: Denies chest pain Respiratory/Chest Respiratory/Chest: Denies cough or dyspnea Gastrointestinal Gastrointestinal: Reports abdominal pain; Denies diarrhea, nausea or vomiting Genitourinary Genitourinary ED: Denies difficulty urinating or dysuria Musculoskeletal Musculoskeletal: Denies back pain or extremity pain Integumentary Denies Abrasions or rash Neurologic Neurologic: Denies headache(s) or weakness Psychiatric Psychiatric: Denies anxiety or depression Allergic/Immunologic Allergic/Immunologic ED: Denies lip swelling or urticaria EXAM Physical Exam Const Vital Signs: 12/28/22 11:07 Temperature 96.5 F L Temperature Source Temporal Pulse Rate 86 Respiratory Rate 18 Blood Pressure 139/100 H Blood Pressure Mean 113 Pulse Ox 98 Oxygen Delivery Method Room Air Positive well nourished and well developed General Appearance ED: well developed HEENT Reports moist mucous membranes Eyes EOMs intact bilaterally Chest Wall inspection of chest normal and palpation of chest normal Resp normal respiratory effort and clear to auscultation bilaterally Cardio regular rate and regular rhythm GI GI Narrative: Abdomen soft with diffuse tenderness in the lower abdomen. No palpable masses. Active bowel sounds are noted. Back/Spine no CVA tenderness Extremity normal to inspection Neuro oriented x3 and no sensory deficits noted Motor Exam: strength 5/5 throughout Psych mental status grossly normal Skin no rashes or lesions noted MDM MDM MDM Narrative Medical decision making narrative: Patient given morphine and Zofran for pain. Labwork obtained to evaluate for leukocytosis, anemia, and electrolyte derangement. Urinalysis obtained to evaluate for infection/hematuria. CT scan of the abdomen pelvis with contrast obtained to evaluate for mass, obstruction, hematoma. History & Record Review Discussion w/independent historian: Patient and Family Lab Data Attestation: I reviewed the patient's lab results. Labs: Laboratory Results - last 24 hr 12/28/22 12/28/22 11:39 11:54 WBC 16.0 H RBC 4.83 Hgb 13.8 Hct 42.3 MCV 87.6 MCH 28.6 MCHC 32.6 RDW Std Deviation 41.4 RDW Coeff of Maryana 12.9 Plt Count 203 MPV 12.2 H Immature Gran % (Auto) 0.500 Neut % (Auto) 78.4 H Lymph % (Auto) 14.6 L Reeves % (Auto) 5.3 Eos % (Auto) 0.9 Baso % (Auto) 0.3 Absolute Neuts (auto) 12.6 H Absolute Lymphs (auto) 2.34 Nucleated RBC % 0 Sodium 141 Potassium 3.9 Chloride 111 H Carbon Dioxide 27.0 Anion Gap 3 L BUN 11 Creatinine 0.84 Estim Creat Clear Calc 85.72 Est GFR (MDRD) Af Amer 100 Est GFR (MDRD) Non-Af 83 BUN/Creatinine Ratio 13.1 Glucose 164 H Calcium 9.0 Serum , Qual NEGATIVE Urine Color Yellow Urine Clarity Clear Urine pH 5.0 Ur Specific [place]el 1.030 Urine Protein 30 H Urine Glucose (UA) 50 H Urine Ketones 15 H Urine Occult Blood Negative Urine Nitrite Negative Urine Bilirubin Negative Urine Urobilinogen 4 H Ur Leukocyte Esterase 100 H Urine RBC 0 SEEN Urine WBC 5-10 SEEN Ur Squamous Epith Cells 10-25 SEEN Urine Bacteria 0 SEEN Urine Mucus 2+ Radiography Diagnostic Testing: Clinical Impression(s) from Imaging Studies Abdomen/Pelvis CT 12/28/22 11:30 IMPRESSION: 1. No focal acute inflammatory process. 2. Heterogeneous uterus better evaluated by ultrasound. Electronically Signed: Jeff Cox MD at 14:51 EDT , Treatment and Re-Evaluation :: On repeat evaluation patient does feel improved. CBC reveals an elevated white count at 16.0 with 78% neutrophils. Hemoglobin is normal at 13.8. Chemistry studies are unremarkable. test is negative. Urinalysis reveals 0 bacteria with 10-25 epithelial cells and only 5-10 white cells. No nitrites are noted. CT scan of the abdomen pelvis with contrast is obtained. No focal acute inflammatory process is noted. There is a 2 cm right adnexal cyst noted. Patient does have an elevated white count, she has not had fever or other signs of acute infection. She does not have vaginal discharge. She does have a 2 cm adnexal cyst which could be worsening her chronic pelvic pain. I will give her a course of Percocet and will refer her to Dr. Esquivel, on-call for no doc [employer] for further evaluation. Discharge Plan Triage Chief Complaint: Abd Pain ED Provider: Che Burns Dx/Rx/DC Orders Clinical Impression: Ovarian cyst, Pelvic pain Instructions: ED Ovarian Cyst, ED Pelvic Pain, Unknown Cause Prescriptions: New oxycodone-acetaminophen [Percocet] 5-325 mg tablet 1 tab PO Q6H PRN (Reason: pain) 3 Days Qty: 14 0RF No Action Prenatabs FA 1 TABLET tablet 1 tab PO DAILY Hold Instructions: Pt has been DC'd ibuprofen 800 MG tablet 800 mg PO TID PRN PRN (Reason: Pain or cramping) Qty: 30 1RF Hold Instructions: Pt has been DC'd Primary Care Provider: Care Physician,No Primary Referrals: Dulce Maria Esquivel DO [Med Staff - Active Staff] - As soon as possible Care Physician,No Primary [Primary Care Provider] - Disposition Disposition: Home, Self Care
[2022-12-28 11:43] LABS: Bacteria 0 SEEN /hpf (None Seen); Red Blood Cells-Urine 0 SEEN /hpf (0-5)
[2022-12-28] MEDS: Ondansetron 4 MG/2 ML Vial IV (11:52)
[2022-12-28] MEDS: Morphine 4 MG/ML Syringe IV (11:52)
[2022-12-28] MEDS: 0.9% Normal Saline (1000mL) 1,000 ML 150 ML IV (11:53)
[2022-12-28 11:55] LABS: Color, Urine Yellow (Yellow); Glucose, Dipstick 50 mg/dl (Normal); Ketone-Dipstick 15 mg/dl (Negative); Leukocyte Esterase-Dipstick 100 /ul (Negative); Nitrite-Dipstick Negative (Negative); Occult Blood-Urine Negative /ul (Negative); Protein-Dipstick 30 mg/dl (Negative); Urine Bilirubin Dipstick Negative (Negative); Urine Clarity Clear (Clear); Urine Urobilinogen 4 mg/dl (Normal)
[2022-12-28 12:11] LABS: Internal QC Validated? YES +Cl - CLEAR BKGD; Pregnancy, Serum, hCG Quali. NEGATIVE Negative
[2022-12-28 12:15] LABS: Absolute Lymphocyte Count 2.34 X10^3/uL (0.83-4.51); Absolute Neutrophil Count 12.6 X10^3/uL (2.0-7.7); Basophil# 0.05 X10^3/uL; Basophil% 0.3 % (0-1); Eosinophil# 0.14 X10^3/uL; Eosinophils% 0.9 % (0-5); Hematocrit 42.3 % (37-47); Hemoglobin 13.8 g/dL (12.0-15.0); Lymphocyte # 2.34 X10^3/ul (0.83-4.51); Lymphocyte % 14.6 % (19-41); Mean Corp Hgb Conc 32.6 g/dL (32-36); Mean Corpuscular Hgb 28.6 pg (27.0-32.0); Mean Corpuscular Volume 87.6 fL (81-99); Mean Platelet Vol. 12.2 fl (6.2-12.0); Monocyte# 0.85 X10^3/uL; Monocyte% 5.3 % (0-10); NRBC Flagged by Analyzer 0 % (0-5); Neutrophil # 12.58 X10^3/uL (2.7-7.7); Neutrophil % 78.4 % (47-70); Platelet Count 203 K/mm3 (150-450); RBC Distribution Width CV 12.9 % (11.6-14.6); RBC Distribution Width SD 41.4 fl (35.1-43.9); Red Blood Count 4.83 M/mm3 (4.2-5.4)
[2022-12-28 12:17] LABS: Anion Gap 3 (5-15); BUN 11 mg/dL (7-18); BUN/Creat Ratio 13.1 RATIO (10-20); Chloride 111 mmol/L (98-107); Creatinine, Serum 0.84 mg/dL (0.55-1.02); EST Glomerular Filtration Rate 83 mL/min (>60); Est Glom Filt Rate - Afr Amer 100 mL/min (>60); Estimated Creatinine Clearance 85.72 ml/min; Glucose 164 mg/dL (74-106); Potassium 3.9 mmol/L (3.5-5.1); Sodium Level 141 mmol/L (136-145)
[2022-12-28 12:43] LABS: White Blood Cells 5-10 SEEN /hpf (0-5)
[2022-12-28 12:44] LABS: Mucous, Urine 2+ /hpf (<or=2+); Squamous Epithelial Cells - UA 10-25 SEEN /hpf (5-10)
== END 2022-12-28 15:24 | disposition home or self-care (01) ==
PROVIDERS: Emergency Provider Emergency Medicine; Visit Provider Emergency Medicine
DX: N83.209 Unspecified ovarian cyst, unspecified side (principal); R10.2 Pelvic and perineal pain; F17.210 Nicotine dependence, cigarettes, uncomplicated
CPT/HCPCS: 74177; 80048; 81001; 84703; 85025; 96361; 96374; 96375; 99283; J7030; Q9967; J2405

== ENCOUNTER 2024-02-27 17:20 | Emergency (ER) | payer MEDICAID, SELFPAY ==
[2024-02-27 17:21] VITALS: BP 166/109; PULSE 73; RESP 16; TEMP 36.6; O2SAT 100; BMI 38.7
== END 2024-02-27 19:01 | disposition left against medical advice (07) ==
LOC: ED 19:02
DX: Z53.21 Procedure and treatment not carried out due to patient leaving prior to being seen by health care provider (principal)

== ENCOUNTER 2024-04-28 13:17 | Emergency (ER) | payer MEDICAID, SELFPAY ==
[2024-04-28 13:17] VITALS: BP 149/101; PULSE 76; RESP 15; TEMP 36.7; O2SAT 98; BMI 38.2
--- NOTE | 2024-04-28 14:22 | EX.ED.DYSGE1 ---
HPI History of Present Illness Chief Complaint: Hyperglycemia Informant: patient Onset/Context/Timing Onset: Days Context: Gradual Onset Timing: Continuous Current Severity: Mild Maximum Severity: Mild Narrative Narrative: 33-year-old female history of insulin-dependent diabetes hypertension. Recently moved from about an hour [place] a half away. Has not had a primary care physician for a year. And is out of her insulin. Suggested taking it for a year. She has appointment to be seen by her primary care physician in [place] but that is not till the about 15 days from now. She has had some intermittent vomiting and diarrhea. No fever. No dysuria. Consider blood sugars the other day were 415 and today to 87. Prior similar symptoms: Yes Recent Illness/Hospitalization: No [facility] Medical History Type 2 diabetes mellitus Hypertension Home Medications ?Medication ?Instructions ?Recorded ?Last Taken ?Type vits,calcium no.78-iron 1 tab PO DAILY 06/16/17 Unknown History fumarate-folic acid 29 mg-1 mg tablet (Prenatabs FA) Held on 11/18/22. Instructions: Pt has been DC'd ibuprofen 800 mg tablet 800 mg PO TID PRN PRN Pain or 06/18/17 Unknown Rx Held on 11/18/22. cramping #30 tabs Instructions: Pt has been DC'd oxycodone-acetaminophen 5 mg-325 1 tab PO Q6H PRN pain 3 days #14 12/28/22 Unknown Rx mg tablet (Percocet) tabs insulin lispro 100 unit/mL 15 unit (0.15 mL) subcut BID 30 04/28/24 Unknown Rx subcutaneous pen (Humalog KwikPen days #9 mL (U-100) Insulin) Allergy/AdvReac Type Severity Reaction Status Date / Time No Known Allergies Allergy Verified 04/28/24 13:20 Social History Smoking Status: Current every day smoker tobacco type: cigarettes ROS ROS ED ROS Narrative Nausea, vomiting and diarrhea. Elevated blood sugar. Constitutional Constitutional ED: Denies chills or fever(s) Eyes Eyes: Denies blurry vision ENT ENT ED: Denies ear pain Cardiovascular Cardiovascular: Denies chest pain Respiratory/Chest Respiratory/Chest: Denies cough or dyspnea Gastrointestinal Gastrointestinal: Reports diarrhea, nausea and vomiting; Denies abdominal pain, constipation or melena Genitourinary Genitourinary ED: Denies dysuria or hematuria Musculoskeletal Musculoskeletal: Denies arthralgias, back pain or myalgias Integumentary Denies abscess or Abrasions Neurologic Neurologic: Denies headache(s), paresthesias or weakness Psychiatric Psychiatric: Denies anxiety or depression Endocrine Endocrinology: Denies cold intolerance Hematologic/Lymphatic Hematologic/Lymphatic: Reports none; Denies anemia Allergic/Immunologic Allergic/Immunologic ED: Denies mouth swelling, tongue swelling or urticaria EXAM Physical Exam Narrative Exam Narrative: 33-year-old female sitting upright in bed. Vital signs stable afebrile. No acute distress. H EENT exam pupils round reactive light. Extra motions are intact. Moist mucous membranes. Neck nontender no lymphadenopathy. No meningismus. Lungs clear to auscultation bilaterally. Heart regular rate and rhythm rate about 75 no murmur. Chest wall ribs nontender. Abdomen soft nontender. Moving all 4 extremities. Calves are nontender without edema or cords. Neurologically she is awake and alert no focal motor deficits. Answer questions following commands. Benign exam. Const Vital Signs: 04/28/24 13:17 04/28/24 14:26 04/28/24 15:17 Temperature 98.1 F Temperature Source Temporal Pulse Rate 76 74 Respiratory Rate 15 13 Respiratory Effort Normal Non-Labored Respiratory Pattern Normal Blood Pressure 149/101 H 145/98 H Blood Pressure Mean 117 113 Pulse Ox 98 98 Oxygen Delivery Method Room Air Room Air Positive well nourished and well developed; Negative for cachectic, contractures or unkempt General Appearance ED: well developed and NAD; Negative for unkempt, cachectic, contractures, cyanotic, diaphoretic or pallor Nutritional Appearance: Negative for cachectic HEENT Reports moist mucous membranes Negative for trauma or tenderness Eyes PERRL and EOMs intact bilaterally General Eye ED: Negative for pale conjunctiva or scleral icterus Neck no lymphadenopathy, supple and no JVD General: Negative for tenderness Chest Wall inspection of chest normal and palpation of chest normal Resp normal respiratory effort and clear to auscultation bilaterally Effort and Inspection: Negative for retractions Auscultation: Negative for rales, rhonchi, wheezes or diminished lung sounds Cardio regular rate, regular rhythm, S1 normal heart sound, S2 normal heart sound and no murmurs Palpation: Negative for palpable S3 or palpable S4 Rate: Negative for bradycardia, tachycardic or other Rhythm: Negative for abnormal rhythm GI normal to inspection, nondistended, normoactive bowel sounds, non-tender, non-distended and no masses Palpation: soft; Negative for tender, guarding or rebound tenderness present Back/Spine no CVA tenderness General Back: Negative for CVA tenderness Cervical Spine: Negative for cervical spine tenderness Thoracic Spine / Upper Back: Negative for thoracic spinal tenderness or paraspinal muscle tenderness Lumbar Spine / Lower Back: Negative for lumbar spinal tenderness Extremity normal to inspection General Extremety ED: Negative for edema or tenderness General Extremity: Negative for edema Neuro oriented x3 and CN's II-XII intact bilaterally Sensorium / Orientation: alert; Negative for orientation impaired, lethargic or stuporous Motor Exam: strength 5/5 throughout Psych mental status grossly normal Appearance: Negative for unkempt Attitude: No agitated Mood & Affect: Negative for depressed, anxious or tearful Skin no rashes or lesions noted, no wounds and skin turgor normal General Skin Exam: elasticity normal; Negative for jaundice or pallor Lesions: No lesion noted Rashes: No rashes noted Trauma: Negative for abrasion Wounds: Negative for wounds noted MDM MDM MDM Narrative Medical decision making narrative: 33-year-old diabetic female it has been off her insulin for a year because she has no local primary care physician after she moved. Having elevated blood sugars. Exam is benign. Screening labs are being obtained. Repeat exam patient doing well at 3:35 PM. Should be discharged home prescription for insulin 15 units twice daily. Check her sugars regularly. She has an upcoming appointment to get a new primary care physician and she is going to [facility] in [place] On 05/13/2024. History & Record Review Discussion w/independent historian: Patient Additional record(s) reviewed:: Prior inpatient record, Prior outpatient record, Prior ED visit and Prior labs Lab Data Attestation: I reviewed the patient's lab results. Lab results narrative: CBC shows normal white count of 10. H&H of 14 and 43. Platelets 198. BGT was 315. Acetone was negative. BMP shows anion gap 12. BUN of 13 creatinine 0.7. Glucose 311. Labs: Laboratory Results - last 24 hr 04/28/24 04/28/24 04/28/24 14:05 14:17 14:17 WBC 10.3 RBC 5.11 Hgb 14.9 Hct 43.3 MCV 84.7 MCH 29.2 MCHC 34.4 RDW Std Deviation 38.5 RDW Coeff of Maryana 12.6 Plt Count 198 MPV 11.6 Immature Gran % (Auto) 0.400 Neut % (Auto) 68.4 Lymph % (Auto) 23.4 Lake % (Auto) 6.5 Eos % (Auto) 0.9 Baso % (Auto) 0.4 Absolute Neuts (auto) 7.1 Absolute Lymphs (auto) 2.41 Nucleated RBC % 0 Sodium 135 Cancelled Potassium 4.0 Chloride Carbon Dioxide Anion Gap BUN Creatinine Estim Creat Clear Calc Est GFR (MDRD) Non-Af BUN/Creatinine Ratio Glucose Calcium Acetone Level POC Glucose 315 H 04/28/24 04/28/24 04/28/24 14:17 14:17 14:17 WBC RBC Hgb Hct MCV MCH MCHC RDW Std Deviation RDW Coeff of Maryana Plt Count MPV Immature Gran % (Auto) Neut % (Auto) Lymph % (Auto) Lake % (Auto) Eos % (Auto) Baso % (Auto) Absolute Neuts (auto) Absolute Lymphs (auto) Nucleated RBC % Sodium Potassium Cancelled Chloride 100 Cancelled Carbon Dioxide 22.7 Cancelled Anion Gap 12 BUN Creatinine Estim Creat Clear Calc Est GFR (MDRD) Non-Af BUN/Creatinine Ratio Glucose Calcium Acetone Level POC Glucose 04/28/24 04/28/24 04/28/24 14:17 14:17 14:17 WBC RBC Hgb Hct MCV MCH MCHC RDW Std Deviation RDW Coeff of Maryana Plt Count MPV Immature Gran % (Auto) Neut % (Auto) Lymph % (Auto) Lake % (Auto) Eos % (Auto) Baso % (Auto) Absolute Neuts (auto) Absolute Lymphs (auto) Nucleated RBC % Sodium Potassium Chloride Carbon Dioxide Anion Gap Cancelled BUN 13 Cancelled Creatinine 0.71 Cancelled Estim Creat Clear Calc 129.16 Est GFR (MDRD) Non-Af BUN/Creatinine Ratio Glucose Calcium Acetone Level POC Glucose 04/28/24 04/28/24 04/28/24 14:17 14:17 14:17 WBC RBC Hgb Hct MCV MCH MCHC RDW Std Deviation RDW Coeff of Maryana Plt Count MPV Immature Gran % (Auto) Neut % (Auto) Lymph % (Auto) Lake % (Auto) Eos % (Auto) Baso % (Auto) Absolute Neuts (auto) Absolute Lymphs (auto) Nucleated RBC % Sodium Potassium Chloride Carbon Dioxide Anion Gap BUN Creatinine Estim Creat Clear Calc Cancelled Est GFR (MDRD) Non-Af 115 Cancelled BUN/Creatinine Ratio 18.7 Cancelled Glucose 311 H Calcium Acetone Level POC Glucose 04/28/24 04/28/24 14:17 14:17 WBC RBC Hgb Hct MCV MCH MCHC RDW Std Deviation RDW Coeff of Maryana Plt Count MPV Immature Gran % (Auto) Neut % (Auto) Lymph % (Auto) Lake % (Auto) Eos % (Auto) Baso % (Auto) Absolute Neuts (auto) Absolute Lymphs (auto) Nucleated RBC % Sodium Potassium Chloride Carbon Dioxide Anion Gap BUN Creatinine Estim Creat Clear Calc Est GFR (MDRD) Non-Af BUN/Creatinine Ratio Glucose Cancelled Calcium 9.5 Cancelled Acetone Level NEGATIVE POC Glucose Discharge Plan Triage Chief Complaint: Hyperglycemia ED Provider: Malik Frey Dx/Rx/DC Orders Clinical Impression: Hyperglycemia Instructions: ED Diabetic Hyperglycemia Prescriptions: New insulin lispro [Humalog KwikPen Insulin] 100 unit/mL insulin pen 15 unit subcut BID 30 Days Qty: 9 0RF Rx Instructions: 15 units of insulin subcu twice a day. Make sure you check your blood sugar prior to giving yourself insulin. Hold the insulin if your blood sugars are running below 100. No Action Prenatabs FA 1 TABLET tablet 1 tab PO DAILY ibuprofen 800 MG tablet 800 mg PO TID PRN PRN (Reason: Pain or cramping) Qty: 30 1RF oxycodone-acetaminophen [Percocet] 5-325 mg tablet 1 tab PO Q6H PRN (Reason: pain) 3 Days Qty: 14 0RF Primary Care Provider: Care Physician,No Primary Referrals: Care Physician,No Primary [Primary Care Provider] - Activity Restrictions/Additional Instructions: Follow-up with your doctors your scheduled appointment on the . Watch your blood sugars closely. Take your insulin twice a day as prescribed. Check your blood sugars prior to taking your insulin and before going to bed. Print Language: Micronesian Disposition Disposition: Home, Self Care
[2024-04-28 14:23] LABS: Bedside Glucose 315 mg/dL (74-106)
[2024-04-28 14:38] LABS: Absolute Lymphocyte Count 2.41 X10^3/uL (0.83-4.51); Absolute Neutrophil Count 7.1 X10^3/uL (2.0-7.7); Basophil# 0.04 X10^3/uL; Basophil% 0.4 % (0-1); Eosinophil# 0.09 X10^3/uL; Eosinophils% 0.9 % (0-5); Hematocrit 43.3 % (37-47); Hemoglobin 14.9 g/dL (12.0-15.0); Lymphocyte # 2.41 X10^3/ul (0.83-4.51); Lymphocyte % 23.4 % (19-41); Mean Corp Hgb Conc 34.4 g/dL (32-36); Mean Corpuscular Hgb 29.2 pg (27.0-32.0); Mean Corpuscular Volume 84.7 fL (81-99); Mean Platelet Vol. 11.6 fl (6.2-12.0); Monocyte# 0.67 X10^3/uL; Monocyte% 6.5 % (0-10); NRBC Flagged by Analyzer 0 % (0-5); Neutrophil # 7.07 X10^3/uL (2.7-7.7); Neutrophil % 68.4 % (47-70); Platelet Count 198 K/mm3 (150-450); RBC Distribution Width CV 12.6 % (11.6-14.6); RBC Distribution Width SD 38.5 fl (35.1-43.9); Red Blood Count 5.11 M/mm3 (4.2-5.4); White Blood Count 10.3 K/mm3 (4.4-11.0)
[2024-04-28 15:17] VITALS: BP 145/98; PULSE 74; RESP 13; O2SAT 98
[2024-04-28 15:23] LABS: Anion Gap 12 (5-15); BUN 13 mg/dL (4-19); BUN/Creat Ratio 18.7 RATIO (10-20); Calcium,Total 9.5 mg/dL (7.6-11.0); Carbon Dioxide 22.7 mmol/L (21.0-32.0); Chloride 100 mmol/L (98-108); Creatinine, Serum 0.71 mg/dL (0.70-1.20); EST Glomerular Filtration Rate 115 (>60); Estimated Creatinine Clearance 129.16 ml/min (50-250); Glucose 311 mg/dL (70-99); Sodium Level 135 mmol/L (133-145)
[2024-04-28 15:43] VITALS: BP 153/91; PULSE 82; RESP 16; TEMP 36.8; O2SAT 98
== END 2024-04-28 15:44 | disposition home or self-care (01) ==
PROVIDERS: Emergency Provider Emergency Medicine; Visit Provider Emergency Medicine
DX: E11.65 Type 2 diabetes mellitus with hyperglycemia (principal); Z79.4 Long term (current) use of insulin; F17.210 Nicotine dependence, cigarettes, uncomplicated
CPT/HCPCS: 80048; 82009; 82962; 85025; 99284; A4216

== ENCOUNTER 2024-06-07 13:26 | Emergency (ER) | payer MEDICAID, SELFPAY ==
[2024-06-07] VITALS (7 sets, daily range): BP systolic 112–170; BP diastolic 78–104; PULSE 75–78; RESP 16; TEMP 36.6–36.8; O2SAT 98–100; BMI 38.2
--- NOTE | 2024-06-07 13:29 | EKG12_ITS ---
Test Reason : CP Blood Pressure : */* mmHG Vent. Rate : 75 BPM Atrial Rate : 75 BPM P-R Int : 182 ms QRS Dur : 90 ms QT Int : 402 ms P-R-T Axes : 55 79 47 degrees QTcB Int : 448 ms Normal sinus rhythm Low voltage QRS Borderline ECG Confirmed by Lui Clark ([id number]), newspaper editor managing SUSANNA AVITIA ([id number]) on 06/08/2024 11:28:02 AM Referred By: Confirmed By: Lui Clark
--- NOTE | 2024-06-07 13:40 | RAD_ITS ---
PROCEDURE: CHEST 1 VIEW (PORTABLE) 06/07/2024 REASON FOR EXAM: CHEST PAIN Left-sided arm tingling for 1 week TECHNIQUE: Frontal view of the chest. COMPARISON: None FINDINGS: Hardware: None Heart: Cardiac and mediastinal contours are stable. Lungs: No significant change in the appearance of the lungs. Bones: The bones are unremarkable. RAD/Chest 1 View (Portable) IMPRESSION: No acute cardiopulmonary process identified radiographically. Reading Location: [id number]
[2024-06-07 13:48] LABS: Absolute Neutrophil Count 7.1 X10^3/uL (2.0-7.7); Basophil# 0.05 X10^3/uL; Basophil% 0.5 % (0-1); Eosinophil# 0.09 X10^3/uL; Eosinophils% 0.8 % (0-5); Hematocrit 43.9 % (37-47); Hemoglobin 15.1 g/dL (12.0-15.0); Lymphocyte % 26.2 % (19-41); Mean Corp Hgb Conc 34.4 g/dL (32-36); Mean Corpuscular Volume 84.3 fL (81-99); Mean Platelet Vol. 11.6 fl (6.2-12.0); Monocyte# 0.66 X10^3/uL; Monocyte% 6.2 % (0-10); NRBC Flagged by Analyzer 0 % (0-5); Neutrophil # 7.06 X10^3/uL (2.7-7.7); Platelet Count 220 K/mm3 (150-450); RBC Distribution Width CV 12.1 % (11.6-14.6); RBC Distribution Width SD 36.7 fl (35.1-43.9); Red Blood Count 5.21 M/mm3 (4.2-5.4); White Blood Count 10.7 K/mm3 (4.4-11.0)
--- NOTE | 2024-06-07 14:22 | ED.VIS.CHEST ---
HPI History of Present Illness Chief Complaint: Chest Pain Informant: patient Narrative Narrative: 34-year-old female's been having intermittent chest pain for the last week but this morning more persistent. She states it is left-sided heaviness and sharp pain, it is pleuritic, giving her sensation of numbness throughout her left arm and her jaw, sometimes make her feel like her heart is racing given her anxiety which she has a history of, but she states it is never caused her to have chest discomfort like this before although it has given her chest pains in the past. She denies any cough. Denies any leg pain or swelling. No history of DVT or PE, recent immobilization/hospitalization/surgery or long travel out of the area. She is a smoker but takes no control pills or other forms of female hormones. She states she has a significant family history of members with heart disease/heart attacks at age less than 40. CVD Risk Factors: Positive for Hypertension, Diabetes, Family History 1' </=55 and Smoking [facility] Medical History Type 2 diabetes mellitus Hypertension Home Medications ?Medication ?Instructions ?Recorded ?Last Taken ?Type vits,calcium no.78-iron 1 tab PO DAILY 06/16/17 Unknown History fumarate-folic acid 29 mg-1 mg tablet (Prenatabs FA) Held on 11/18/22. Instructions: Pt has been DC'd ibuprofen 800 mg tablet 800 mg PO TID PRN PRN Pain or 06/18/17 Unknown Rx Held on 11/18/22. cramping #30 tabs Instructions: Pt has been DC'd oxycodone-acetaminophen 5 mg-325 1 tab PO Q6H PRN pain 3 days #14 12/28/22 Unknown Rx mg tablet (Percocet) tabs insulin lispro 100 unit/mL 15 unit (0.15 mL) subcut BID 30 04/28/24 Unknown Rx subcutaneous pen (Humalog Kw days #9 mL (U-100) Insulin) Allergy/AdvReac Type Severity Reaction Status Date / Time No Known Allergies Allergy Verified 06/07/24 13:27 Social History household members: spouse and children housing: house Smoking Status: Current every day smoker tobacco type: cigarettes ROS ROS ED Constitutional Constitutional ED: Denies chills or fever(s) Eyes Eyes: Denies change in vision or diplopia ENT ENT ED: Denies rhinorrhea or sore throat Cardiovascular Cardiovascular: Reports as per HPI, chest pain, racing heartbeat and radiating jaw, neck or arm pain; Denies palpitations Respiratory/Chest Respiratory/Chest: Denies cough or dyspnea Gastrointestinal Gastrointestinal: Denies abdominal pain, diarrhea, nausea or vomiting Genitourinary Genitourinary ED: Denies dysuria or hematuria Musculoskeletal Musculoskeletal: Denies back pain or neck pain Integumentary Denies abscess or rash Neurologic Neurologic: Reports paresthesias LUE; Denies headache(s) or weakness Psychiatric Psychiatric: Reports anxiety; Denies suicidal thoughts EXAM Physical Exam Const Vital Signs: 06/07/24 13:27 06/07/24 13:55 06/07/24 13:55 Temperature 98.2 F Temperature Source Oral Pulse Rate 78 Respiratory Rate 16 Respiratory Effort Normal Non-Labored Blood Pressure 170/104 H Blood Pressure Mean 126 Pulse Ox 100 100 Oxygen Delivery Method Room Air Room Air 06/07/24 14:27 06/07/24 15:00 06/07/24 15:15 Temperature Temperature Source Pulse Rate 78 75 Respiratory Rate 16 16 Respiratory Effort Blood Pressure 113/81 H 112/78 113/81 H Blood Pressure Mean 91 89 91 Pulse Ox 98 98 Oxygen Delivery Method 06/07/24 16:00 Temperature Temperature Source Pulse Rate 78 Respiratory Rate 16 Respiratory Effort Blood Pressure 120/78 Blood Pressure Mean 92 Pulse Ox 98 Oxygen Delivery Method Positive well nourished and well developed General Appearance ED: well developed and NAD HEENT Reports moist mucous membranes normocephalic and atraumatic Eyes PERRL and EOMs intact bilaterally Neck full ROM and supple Resp normal respiratory effort and clear to auscultation bilaterally Cardio regular rate, regular rhythm and no murmurs GI non-tender and non-distended Auscultation: normoactive bowel sounds Palpation: soft Back/Spine no CVA tenderness General Back: other FROM Extremity normal to inspection General Extremety ED: Negative for edema, pulses abnormal or tenderness General Extremity: Negative for edema or pulses abnormal Neuro oriented x3, CN's II-XII intact bilaterally and no sensory deficits noted Sensorium / Orientation: awake and alert Motor Exam: strength 5/5 throughout Psych Mood & Affect: anxious Skin no rashes or lesions noted and no wounds Heart Score History: Moderately Suspicious ECG: Normal Age: </= 45 years Risk Factors: >/= 3 Risk Factors or History of CAD Score: 3 MDM MDM MDM Narrative Medical decision making narrative: Considering acute coronary syndrome in addition to Azar embolus here, esophageal etiologies, pleurisy, pneumonia. Chest x-ray 1 view my interpretation shows no acute pneumonia or widened mediastinum, and her symptoms are less consistent with an acute aortic dissection. Her EKG is normal and her initial troponin is normal in the single digits, arguing against acute coronary syndrome, and her D-dimer is negative, in this low risk patient ruling out pulmonary embolus. The second troponin came back in single digits as well, lower than the initial measurement, therefore at this time patient is stable to be discharged home. In addition, her initial blood pressure was 170/104, but on recheck without treating it specifically it is 120/78. She should get a recheck with her doctor. Lab Data Attestation: I reviewed the patient's lab results. Labs: Laboratory Results - last 24 hr 06/07/24 06/07/24 13:34 15:26 WBC 10.7 RBC 5.21 Hgb 15.1 H Hct 43.9 MCV 84.3 MCH 29.0 MCHC 34.4 RDW Std Deviation 36.7 RDW Coeff of Maryana 12.1 Plt Count 220 MPV 11.6 Immature Gran % (Auto) 0.300 Neut % (Auto) 66.0 Lymph % (Auto) 26.2 [place] % (Auto) 6.2 Eos % (Auto) 0.8 Baso % (Auto) 0.5 Absolute Neuts (auto) 7.1 Absolute Lymphs (auto) 2.80 Nucleated RBC % 0 D-Dimer Quant (PE/DVT) 0.28 Sodium 137 Potassium 3.9 Chloride 102 Carbon Dioxide 21.2 Anion Gap 14 BUN 10 Creatinine 0.79 Estim Creat Clear Calc 114.98 Est GFR (MDRD) Non-Af 100 BUN/Creatinine Ratio 13.0 Glucose 246 H Calcium 9.6 Troponin T High Sens 9 Troponin T Hi Sens 2 Hr 7 Radiography Diagnostic Testing: Clinical Impression(s) from Imaging Studies Chest X-Ray 06/07/24 13:40 IMPRESSION: No acute cardiopulmonary process identified radiographically. Reading Location: [facility] Rhythm Strip Rhythm Strip: Sinus Rhythm Rate: 75 Ectopy: None EKG Initial EKG: Attestation: I personally reviewed and interpreted this EKG as follows: Interpretation: Sinus Rhythm and No Acute Injury Pattern Comments: Nml axis & intervals; nml EKG Discharge Plan Triage Chief Complaint: Chest Pain ED Provider: Timothy Alvarez Dx/Rx/DC Orders Clinical Impression: Chest pain, unspecified, Episode of hypertension Instructions: ED Chest Pain, Noncardiac Prescriptions: No Action Prenatabs FA 1 TABLET tablet 1 tab PO DAILY ibuprofen 800 MG tablet 800 mg PO TID PRN PRN (Reason: Pain or cramping) Qty: 30 1RF oxycodone-acetaminophen [Percocet] 5-325 mg tablet 1 tab PO Q6H PRN (Reason: pain) 3 Days Qty: 14 0RF insulin lispro [Humalog KwikPen Insulin] 100 unit/mL insulin pen 15 unit subcut BID 30 Days Qty: 9 0RF Rx Instructions: 15 units of insulin subcu twice a day. Make sure you check your blood sugar prior to giving yourself insulin. Hold the insulin if your blood sugars are running below 100. Primary Care Provider: Edda Lambert Referrals: Edda Lambert, DO [Primary Care Provider] - As soon as possible Activity Restrictions/Additional Instructions: Consider trying a 2-week course of omeprazole or esomeprazole or Prevacid. Print Language: Welsh Disposition Disposition: Home, Self Care
[2024-06-07 14:27] LABS: Troponin T High Sensitivity 9 ng/L (<=14)
[2024-06-07 14:34] LABS: Anion Gap 14 (5-15); BUN 10 mg/dL (4-19); Calcium,Total 9.6 mg/dL (7.6-11.0); Carbon Dioxide 21.2 mmol/L (21.0-32.0); Chloride 102 mmol/L (98-108); Creatinine, Serum 0.79 mg/dL (0.70-1.20); EST Glomerular Filtration Rate 100 (>60); Estimated Creatinine Clearance 114.98 ml/min (50-250); Glucose 246 mg/dL (70-99); Potassium 3.9 mmol/L (3.3-5.1); Sodium Level 137 mmol/L (133-145)
[2024-06-07 14:49] LABS: D-Dimer Quantitative (DVT/PE) 0.28 FEU/ug/m (0.27-0.49)
[2024-06-07] MEDS: Mag Hydrox/Al Hydrox/Simeth 30 ML UDC PO (15:23)
[2024-06-07] MEDS: Lidocaine 2% Viscous15 ML UDC 15 ML PO (15:23)
[2024-06-07 16:52] LABS: Troponin T High Sens 2 HR 7 ng/L (<=14)
== END 2024-06-07 17:03 | disposition home or self-care (01) ==
PROVIDERS: Emergency Provider Emergency Medicine; PCP Student in an Organized Health Care Education/Training Program; Visit Provider Emergency Medicine
DX: R07.9 Chest pain, unspecified (principal); E11.9 Type 2 diabetes mellitus without complications; Z79.4 Long term (current) use of insulin; I10 Essential (primary) hypertension; F17.210 Nicotine dependence, cigarettes, uncomplicated; Z82.49 Family history of ischemic heart disease and other diseases of the circulatory system
CPT/HCPCS: 71045; 80048; 84484; 85025; 85379; 93005; 99284; A4216